=== PATIENT | male | born 1975 | race Two or more races ===

== ENCOUNTER 2025-02-26 06:51 | Emergency (ER) | payer OTHER ==
[~2025-02-26] VITALS: Ht 177.8 cm; Wt 83.9 kg
[2025-02-26] MEDS ORDERED: FAMOTIDINE/PF 20 MG/2 ML VIAL ONE (07:57)
[2025-02-26] MEDS ORDERED: MORPHINE SULFATE 2 MG/ML SYRINGE IV PRN (08:00)
[2025-02-26] MEDS ORDERED: ONDANSETRON HCL 4 MG in DEXTROSE 5 % IN WATER 50 ML IV PRN (08:00)
[2025-02-26] MEDS ORDERED: FAMOtidine 10 MG/ML (4ML VIAL) IV ONE (08:00)
[2025-02-26] MEDS ORDERED: 0.9 % SODIUM CHLORIDE 1,000 ML IV ONE (08:00)
[2025-02-26] MEDS ORDERED: ONDANSETRON HCL 2 MG/ML VIAL ONE (08:26)
[2025-02-26 08:28] LABS: BASO % 0.5 % (0.1-1.2); EOS # 0.17 (0.04-0.54); EOS % 2.7 % (0.7-7.0); LYMPH # 1.56 (1.18-3.74); LYMPH % 24.8 % (19.3-53.1); MEAN PLATELET VOLUME 9.60 fl (9.4-12.4); MONO # 0.74 (0.24-0.82); MONO % 11.8 % (4.7-12.5); NEUT # 3.77 (1.56-6.13); NEUT % 60.0 % (34.0-71.1); RED CELL DISTRIBUTION WIDTH 12.0 % (11.6-14.4)
[2025-02-26 08:52] LABS: INR 1.05
[2025-02-26 08:58] LABS: COVID-19 AG NEGATIVE (NEGATIVE)
[2025-02-26 08:59] LABS: ALT/SGPT 25.0 U/L (12-78); AST/SGOT 26.0 U/L (15-37); BILIRUBIN TOTAL 0.76 mg/dL (0.3-1.2); BUN CREA RATIO 11.0 (7.0-25.0); CREATININE SERUM 1.0 mg/dL (0.70-1.30); GFR 79.75; GLOBULINA 3.4 G/DL (2.4-3.5); GLUCOSE FASTING 120.0 mg/dL (65-100); OSMOLALITY SERUM 278.0 MOSM/KG (275-295)
[2025-02-26 09:34] LABS: URINE APPEARANCE Clear; URINE BILIRRUBIN Negative (NEGATIVE); URINE BLOOD Negative; URINE COLOR Yellow; URINE GLUCOSE Negative (NEGATIVE); URINE KETONE Negative (NEGATIVE); URINE LEUKOCYTE Negative; URINE NITRATE Negative; URINE PROTEIN Negative (NEGATIVE); URINE UROBILINOGEN 0.2 E.U./dl
[2025-02-26 09:38] LABS: URINE WBC 2.1 uL (0.0-23.2)
[2025-02-26 09:42] LABS: URINE BACTERIA 0 uL (0.0-1933); URINE CAST 0.00 uL (0.0-1.40); URINE EPITHELIAL CELLS 0.4 uL (0.0-38.8); URINE RBC 0.1 uL (0.0-20.8)
[2025-02-26] MEDS ORDERED: PROMETHAZINE HCL 50 MG/ML AMPUL IM ONE ×2 (10:00→11:55)
[2025-02-26] MEDS ORDERED: PEPCID AC20 MG PO (13:19)
[2025-02-26] MEDS ORDERED: ZOFRAN8 MG PO (13:19)
[2025-02-26] MEDS ORDERED: CIPRO500 MG PO (13:19)
[2025-02-26] MEDS ORDERED: LEVSIN/SL0.125 MG SL (13:19)
[2025-02-26] MEDS ORDERED: PROBIOTIC1 EAC2 PO (13:19)
== END 2025-02-26 14:02 | disposition home or self-care (01) ==
LOC: ER 06:52
PROVIDERS: General Practice
DX: K57.92 Diverticulitis of intestine, part unspecified, without perforation or abscess without bleeding (principal); R07.89 Other chest pain; R10.9 Unspecified abdominal pain; Z20.822 Contact with and (suspected) exposure to COVID-19